=== PATIENT | male | born 1985 | race Caucasian/White ===

== ENCOUNTER 2018-08-08 08:32 | Emergency (ER) | payer MEDICAID ==
[~2018-08-08] VITALS: Ht 170.2 cm; Wt 75.0 kg
[2018-08-08 08:34] VITALS: Ht 170.2 cm; Wt 75.0 kg
[2018-08-08] MEDS ORDERED: IBUP800T48 PO (08:57)
[2018-08-08] MEDS ORDERED: HYDROCODONE/APAP (5/325) TAB PO ONE (09:00)
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
[2018-08-08] MEDS ORDERED: CYCL10TA7 PO (10:21)
[2018-08-08 10:32] VITALS: BP 128/85; PULSE 92; RESP 14
== END 2018-08-08 10:32 | disposition home or self-care (01) ==
LOC: E/R 08:32
DX: S13.4XXA Sprain of ligaments of cervical spine, initial encounter (principal); S63.502A Unspecified sprain of left wrist, initial encounter; F17.210 Nicotine dependence, cigarettes, uncomplicated; V89.2XXA Person injured in unspecified motor-vehicle accident, traffic, initial encounter
CPT/HCPCS: 72040; 73090; Z7502; Z7610